=== PATIENT | male | born 1950 | race Caucasian/White ===

== ENCOUNTER → 2016-06-26 | Outpatient (CLI) | payer OTHER, MEDICARE ==
[~2016-06-26] MED LIST: ADULT LOW DOSE81 MG PO; B12INJ IM; BACTRIM DS TAB1 EACH PO; CASODEX 50 MG T50 M1 PO; DAILY MULTIVIT1 EAC1 PO; DIAZEPAM10 M1 OR; HYDROCODON-ACE1 EAC7 PO; IBUPROFEN 200200 M1 PO; LISINOPRIL10 MG PO; MOBIC15 MG PO; NEURONTIN 300300 M1 PO; NORCO 5-325 TA1 EACH PO; RIFAMPIN 300 M300 M1 NG; RIFAMPIN 300 M300 M1 PO; VITAMIN D400 UNI1 PO; ZANAFLEX4 MG PO; ZYRTEC10 M2 PO
== END ==
LOC: MRI 10:06
DX: M48.04 Spinal stenosis, thoracic region (principal); M41.83 Other forms of scoliosis, cervicothoracic region; M47.892 Other spondylosis, cervical region; M48.02 Spinal stenosis, cervical region